=== PATIENT | male | born 1960 | race Caucasian/White ===

== ENCOUNTER 2025-05-25 16:11 | Emergency (ER) | payer OTHER ==
[~2025-05-25] VITALS: Ht 182.9 cm; Wt 90.8 kg
[2025-05-25] MEDS ORDERED: VITAMIN D325 MC3 PO (17:08)
[2025-05-25] MEDS ORDERED: PANTOPRAZOLE SO40 M2 PO (17:09)
[2025-05-25] MEDS ORDERED: SODIUM CHLORIDE 0.9% 500 ML IV PRN (17:30)
[2025-05-25] MEDS ORDERED: PROMETHAZINE HCL 25 MG TAB PO ONE (17:30)
[2025-05-25] MEDS ORDERED: PANTOPRAZOLE SODIUM 40 MG/10 ML VIAL IV ONE (17:30)
[2025-05-25 17:39] LABS: BASOPHILS 0.9 % (0.2-1.2); EOSINOPHILS 3.3 % (0.8-7.0); LYMPHOCYTES 7.8 % (21.8-53.1); MCH 27.0 PG (25.7-32.2); MCHC 32.2 g/dL (32.3-36.5); MCV 84.0 fL (79.0-92.2); MONOCYTES 10.0 % (5.3-12.2); NEUTROPHILS 77.9 % (34.0-67.9); RBC 5.55 M/uL (4.63-6.08)
[2025-05-25 17:58] LABS: ALT (SGPT) 100.0 U/L (14-59); AST (SGOT) 55.0 U/L (15-37); GLOMERULAR FILTRATION RATE,EST 73.0 mL/min (>60); PROTEIN, TOTAL 7.8 g/dL (6.4-8.2); UREA NITROGEN 27.0 mg/dL (7-18)
[2025-05-25] MEDS ORDERED: ONDANSETRON ODT4 MG PO (18:51)
[2025-05-25] MEDS ORDERED: PROMETHEGAN25 MG PR (18:51)
[2025-05-25] MEDS ORDERED: HYDROmorphone HCL 1 MG/ML SYR IV ONE (19:00)
[2025-05-25 19:16] VITALS: BP 156/100
== END 2025-05-25 19:13 | disposition home or self-care (01) ==
LOC: ED 16:11
PROVIDERS: Emergency Medicine
DX: K29.00 Acute gastritis without bleeding (principal); K27.9 Peptic ulcer, site unspecified, unspecified as acute or chronic, without hemorrhage or perforation; Z79.899 Other long term (current) drug therapy; Z88.0 Allergy status to penicillin; Z88.1 Allergy status to other antibiotic agents; Z88.7 Allergy status to serum and vaccine; Z88.8 Allergy status to other drugs, medicaments and biological substances
CPT/HCPCS: 36415; 80053; 85025; 86850; 86900; 86901; 96361; 96374; 96375; 99284-25; J1171; J2405; J2470; J7040